=== PATIENT | male | born 1990 | race Caucasian/White ===

== ENCOUNTER → 2016-10-07 | Outpatient (CLI) | payer OTHER | LOC: FIMAGING 09:38 | PROVIDERS: ATTEND Orthopaedic Surgery | DX: M89.8X5 Other specified disorders of bone, thigh (principal); M89.8X6 Other specified disorders of bone, lower leg; R60.0 Localized edema ==

== ENCOUNTER → 2017-02-19 | Outpatient (CLI) | payer OTHER | LOC: BMCIMAGING 11:22 | PROVIDERS: ATTEND Internal Medicine | DX: D89.9 Disorder involving the immune mechanism, unspecified (principal); Z13.83 Encounter for screening for respiratory disorder NEC ==